=== PATIENT | female | born 1980 | race Caucasian/White ===

== ENCOUNTER 2018-06-24 00:20 | Emergency (ER) | payer SELFPAY ==
[2018-06-24 00:33] VITALS: TEMP 97.7
--- NOTE | 2018-06-24 00:56 | ED.PDOC ---
History of Present Illness - General Chief Complaint: Dental/Mouth Stated Complaint: right lower jaw pain R/T tooth Time Seen by Provider: 06/24/18 00:53 Source: patient Exam Limitations: no limitations - History of Present Illness Initial Comments: Eulalia Sandoval 37 y/o female came to ER with dull right sided jaw pain starting yesterday.pain on chewing denies history of trauma to jaw. Timing/Duration: yesterday Severity: moderate EENT Location: other - right jaw Prearrival Treatment: no prearrival treatment Presenting Symptoms: jaw pain Improving Factors: nothing Worsening Factors: other - see hpi Associated Symptoms: denies symptoms Allergies/Adverse Reactions: Allergies NO KNOWN ALLERGY Allergy (Verified 06/24/18 00:32) Home Medications: Ambulatory Orders Acetamin W/Cod #3 Tab [Tylenol w/CODEINE #3] 1 ea PO TID PRN #7 tab 06/24/18 Clindamycin HCl 150 mg PO TID #21 cap 06/24/18 Review of Systems - Review of Systems Constitutional: States: no symptoms reported EENTM: States: see HPI Respiratory: States: no symptoms reported Cardiology: States: no symptoms reported Gastrointestinal/Abdominal: States: no symptoms reported Genitourinary: States: no symptoms reported Musculoskeletal: States: no symptoms reported Skin: States: no symptoms reported Past Medical History (General) - Patient Medical History Hx Seizures: No Hx Stroke: No Hx Dementia: No Hx Asthma: No Hx of COPD: No Hx Cardiac Disorders: No Hx Congestive Heart Failure: No Hx Pacemaker: No Hx Hypertension: No Hx Thyroid Disease: No Hx Diabetes: No Hx Gastroesophageal Reflux: No Hx Renal Disease: No Hx of HIV: No Hx MRSA: No Surgical History: other - hysterectomy - Vaccination History Hx Tetanus, Diphtheria Vaccination: Yes Hx Influenza Vaccination: No - Social History Hx Tobacco Use: Yes Hx Alcohol Use: No Family Medical History - Family History Mother Family History: Unknown Physical Exam - Physical Exam General Appearance: Alert, Comfortable, No apparent distress Eye Exam: bilateral normal Ear Exam: bilateral ear: auricle normal, canal normal, TM normal Nasal Exam: normal inspection Throat Exam: normal mouth inspection, pharynx normal, dental tenderness - right jaw tenderness to percussion right lower molars Neck: non-tender, full range of motion, supple, trachea midline Cardiovascular/Respiratory: regular rate, rhythm, no M/R/G, normal peripheral pulses Abdominal Exam: non-tender Neurologic: no motor/sensory deficits, alert, oriented x 3 Skin Exam: normal color, warm/dry Progress - Progress Progress: 06/24/18 00:59 Last Vital Signs Temp 97.7 F 06/24/18 00:26 Pulse 100 H 06/24/18 00:26 Resp 18 06/24/18 00:26 BP 120/82 06/24/18 00:26 Pulse Ox 98 06/24/18 00:26 Departure - Departure Clinical Impression: Pain in lower jaw Time of Disposition: : Disposition: Discharge to Home or Self Care Condition: Fair Departure Forms: ED Discharge - Pt. Copy, Patient Portal Self Enrollment Instructions: DI for Dental Pain, DI for Mouth Pain Diet: other - SOFT DIET UNTIL BETTER Prescriptions: Acetamin W/Cod #3 Tab [Tylenol w/CODEINE #3] 1 ea PO TID PRN #7 tab PRN Reason: Pain Clindamycin HCl 150 mg PO TID #21 cap Home Medications: Ambulatory Orders Acetamin W/Cod #3 Tab [Tylenol w/CODEINE #3] 1 ea PO TID PRN #7 tab 06/24/18 Clindamycin HCl 150 mg PO TID #21 cap 06/24/18 Additional Instructions: NEED TO MAKE APPOINTMENT WITH DENTIST 24 June 2018
[2018-06-24] MEDS ORDERED: CLINDAMYCIN HCL CAP 150 MG CAP PO ONE (01:00)
[2018-06-24] MEDS ORDERED: KETOROLAC TROMETHAMINE INJ 30 MG/ML VIAL IM ONE (01:00)
[2018-06-24] MEDS ORDERED: HYDROcodone 10MG/APAP 325MG 1 EA TAB PO ONE (01:00)
[2018-06-24] MEDS ORDERED: ALUM & MAG HYDROX-SIMETHICONE 30 ML, LIDOCAINE VISCOUS 2% 15 ML PO ONE ×2 (01:27)
[2018-06-24] MEDS ORDERED: SUCRALFATE 1 GM/10 ML 1 GM UD PO ONE (01:28)
[2018-06-24] MEDS ORDERED: LIDOCAINE HCL 2% (MOUTH-THROAT) 15 ML UD ONE (01:29)
[2018-06-24] MEDS ORDERED: ALUM & MAG HYDROX-SIMETHICONE 30 ML UD ONE (01:29)
[2018-06-24] MEDS ORDERED: HYDROCOD/APAP 7.5/325 (ER DISP) #3 TAB PO ONE (01:29)
[2018-06-24 01:44] VITALS: BP 118/78; O2SAT 99
== END 2018-06-24 01:42 | disposition home or self-care (01) ==
LOC: ER 00:20 → EDBD 00:20 → ER 01:42
DX: R68.84 Jaw pain (principal); Z87.891 Personal history of nicotine dependence